=== PATIENT | male | born 1995 | race Two or more races ===

== ENCOUNTER 2019-06-20 22:54 | Emergency (ER) | payer SELFPAY ==
[~2019-06-20] VITALS: Ht 182.9 cm; Wt 72.6 kg
[2019-06-20 23:04] VITALS: BP 146/79
--- NOTE | 2019-06-20 23:40 | NUR ---
PROVIDED PT WITH SANDWICH AND JUICE
--- NOTE | 2019-06-21 00:14 | NUR ---
Patient discharged to home in stable condition. Written and verbal after care instructions given. Patient verbalizes understanding of instruction.
== END 2019-06-21 00:14 | disposition home or self-care (01) ==
LOC: ER 22:57
DX: R05 Cough (principal); F17.210 Nicotine dependence, cigarettes, uncomplicated; Z59.0 Homelessness
CPT/HCPCS: 71046